=== PATIENT | male | born 1985 | race Caucasian/White ===

== ENCOUNTER 2022-01-04 23:24 | Emergency (ER) | payer BC ==
[~2022-01-04] VITALS: Ht 185.4 cm; Wt 81.6 kg
[2022-01-04] MEDS ORDERED: TDAP [DIPH/PERTUSSIS/TET] 0.5 ML VIAL IM ONE (23:53)
[2022-01-05] MEDS ORDERED: TDAP [DIPH/PERTUSSIS/TET] 0.5 ML VIAL IM ONE
--- NOTE | 2022-01-05 | NUR ---
[id number] FROM [facility] C/O DRINKING AND SMOKING WEED, FELT DIZZY. PT A/O X 4, RR EVEN AND UNLABORED, NO SOB NOTED, NO ACUTE DSITRESS NOTED. WILL CONTINUE TO MONITOR.
--- NOTE | 2022-01-05 00:12 | NUR ---
pt to ct via [facility]
[2022-01-05 01:00] VITALS: BP 121/71
--- NOTE | 2022-01-05 01:23 | NUR ---
Patient discharged to home in stable condition. Written and verbal after care instructions given. Patient verbalizes understanding of instruction.
== END 2022-01-05 01:33 | disposition home or self-care (01) ==
LOC: ER 23:30
DX: S01.01XA Laceration without foreign body of scalp, initial encounter (principal); S09.90XA Unspecified injury of head, initial encounter; F10.129 Alcohol abuse with intoxication, unspecified; R94.31 Abnormal electrocardiogram [ECG] [EKG]; W19.XXXA Unspecified fall, initial encounter; Y93.89 Activity, other specified; Y92.511 Restaurant or cafe as the place of occurrence of the external cause; Y99.8 Other external cause status; Y90.9 Presence of alcohol in blood, level not specified
CPT/HCPCS: 36415; 70450-TC; 82962-TC; 90715; G0480